=== PATIENT | male | born 1990 | race Caucasian/White ===

== ENCOUNTER 2020-10-08 13:50 | Inpatient (IN) ==
[2020-10-08 15:23] LABS: INR 1.2; PT Patient Result 12.9 SECS (9.8-11.9)
[2020-10-08 15:34] LABS: Albumin 3.3 G/DL (3.4-5.0); Bilirubin,Total 0.6 MG/DL (0.2-1.0); Calcium 8.6 MG/DL (8.5-10.1); Osmolality,Calculated 271.8 MOS/KG (273-304); Total Protein 7.2 G/DL (6.4-8.3)
[2020-10-08 15:40] LABS: Basophils % 0.7 % (0.0-0.8); Eosinophils # 0.1 10*3/uL (0.0-0.87); Eosinophils % 1.8 % (0.00-10.9); Hematocrit 29.7 VOL% (42.0-52.0); Hemoglobin 8.2 GM/DL (14.0-18.0); Immature Granulocytes % 0.2 %; Immature Granulocytes Absolute 0.01 #; Lymphocytes # 1.4 10*3/uL (1.4-4.0); Lymphocytes % 31.6 % (21.2-54.2); Mean Corpuscular HGB Conc 27.6 GM/DL (32-36); Mean Corpuscular Volume 62.5 FL (87-102); Mean Platelet Volume 10.1 FL (9.6-12.0); Neutrophils % 47.7 % (38.7-73.9); Platelet Count 317 T/CUMM (130-400); Red Blood Count 4.75 MC/CUMM (3.8-5.5); Red Cell Distribution Width 17.5 % (9.3-17.3); White Blood Count 4.4 T/CUMM (4-12)
[2020-10-08 15:51] LABS: Eosinophils 2 % (0-10); Lymphocytes 34 % (20-55); Reactive Lymphocytes Few; Segmented Neutrophils 47 % (50-85); Smudge Cells Few; Total Cells Counted 100
[2020-10-08 15:52] LABS: Microcytosis 3+
[2020-10-08 15:53] LABS: Anisocytosis 2+; Target Cells Few
[2020-10-08 15:54] LABS: Ovalocytes Few
[2020-10-08 15:55] LABS: Platelet Estimate Adequate; Polychromasia Few
[2020-10-08] MEDS ORDERED: GLUCAGON 1 MG VIAL IM PRN (17:10)
[2020-10-08] MEDS ORDERED: DEXTROSE 50% 25 GM/50 ML VIAL IV PRN (17:10)
[2020-10-08] MEDS ORDERED: ONDANSETRON 4 MG/2 ML VIAL IV PRN (17:10)
[2020-10-08] MEDS ORDERED: ACETAMINOPHEN 325 MG TABLET PO PRN (17:10)
[2020-10-08] MEDS ORDERED: INFLUENZA VIRUS VACCINE 0.5 ML SYRINGE IM ONE (18:23)
[2020-10-08] MEDS: SODIUM CHLORIDE 0.9% 1,000 ML IV SCH (18:36)
[2020-10-08 19:00] LABS: Hematocrit 31.4 VOL% (42.0-52.0); Hemoglobin 8.5 GM/DL (14.0-18.0)
[2020-10-08] MEDS: PANTOPRAZOLE 40 MG VIAL IV SCH (20:58)
[2020-10-08 22:00] LABS: % Iron Saturation 2.2 % (18-50)
[2020-10-09 01:32] LABS: Hematocrit 28.5 VOL% (42.0-52.0); Hemoglobin 7.8 GM/DL (14.0-18.0)
[2020-10-09] MEDS: SODIUM CHLORIDE 0.9% 1,000 ML IV SCH ×3 (02:33→18:01)
[2020-10-09 06:16] LABS: Basophils % 0.5 % (0.0-0.8); Eosinophils # 0.2 10*3/uL (0.0-0.87); Eosinophils % 3.9 % (0.00-10.9); Hematocrit 28.7 VOL% (42.0-52.0); Immature Granulocytes % 0.2 %; Immature Granulocytes Absolute 0.01 #; Lymphocytes # 1.8 10*3/uL (1.4-4.0); Lymphocytes % 42.2 % (21.2-54.2); Mean Corpuscular HGB Conc 27.2 GM/DL (32-36); Mean Corpuscular Volume 63.2 FL (87-102); Mean Platelet Volume 10.4 FL (9.6-12.0); Monocytes % 19.4 % (1.7-12.7); Neutrophils % 33.8 % (38.7-73.9); Platelet Count 254 T/CUMM (130-400); Red Blood Count 4.54 MC/CUMM (3.8-5.5); Red Cell Distribution Width 17.4 % (9.3-17.3); White Blood Count 4.3 T/CUMM (4-12)
[2020-10-09 06:18] LABS: Hemoglobin 7.8 GM/DL (14.0-18.0)
[2020-10-09 06:29] LABS: Eosinophils 4 % (0-10); Hypochromasia 2+; Lymphocytes 47 % (20-55); Platelet Estimate Adequate; Segmented Neutrophils 33 % (50-85); Total Cells Counted 100
[2020-10-09 06:30] LABS: Microcytosis Slight; Ovalocytes Slight
[2020-10-09 06:32] LABS: Albumin 2.8 G/DL (3.4-5.0); Bilirubin,Total 0.9 MG/DL (0.2-1.0); Calcium 8.9 MG/DL (8.5-10.1); Osmolality,Calculated 280.1 MOS/KG (273-304); Thyroid Stimulating Hormone 0.99 uIU/ml (0.358-3.74); Total Protein 6.6 G/DL (6.4-8.3)
[2020-10-09] MEDS: BISACODYL 5 MG TABLET PO SCH ×3 (08:57→23:17)
[2020-10-09] MEDS: PANTOPRAZOLE 40 MG VIAL IV SCH ×2 (08:57→20:30)
[2020-10-09 09:31] LABS: Hematocrit 31.2 VOL% (42.0-52.0)
[2020-10-09 09:33] LABS: Hemoglobin 8.4 GM/DL (14.0-18.0)
[2020-10-09] MEDS ORDERED: POLYETHYLENE GLYCOL POWDER 255 GM BOTTLE PO ONE (18:00)
[2020-10-09] MEDS ORDERED: MAGNESIUM CITRATE 300 ML BOTTLE PO ONE (21:00)
[2020-10-10] MEDS: SODIUM CHLORIDE 0.9% 1,000 ML IV SCH ×2 (01:53→10:42)
[2020-10-10 06:50] LABS: Bilirubin,Total 0.9 MG/DL (0.2-1.0); Calcium 8.9 MG/DL (8.5-10.1); Osmolality,Calculated 277.3 MOS/KG (273-304); Total Protein 7.3 G/DL (6.4-8.3)
[2020-10-10 07:22] LABS: Basophils % 0.6 % (0.0-0.8); Eosinophils # 0.2 10*3/uL (0.0-0.87); Eosinophils % 2.7 % (0.00-10.9); Hematocrit 32.7 VOL% (42.0-52.0); Hemoglobin 8.9 GM/DL (14.0-18.0); Immature Granulocytes % 0.6 %; Immature Granulocytes Absolute 0.04 #; Lymphocytes # 2.2 10*3/uL (1.4-4.0); Lymphocytes % 33.7 % (21.2-54.2); Mean Corpuscular HGB Conc 27.2 GM/DL (32-36); Mean Platelet Volume 10.1 FL (9.6-12.0); Monocytes % 9.9 % (1.7-12.7); Neutrophils % 52.5 % (38.7-73.9); Platelet Count 358 T/CUMM (130-400); Red Blood Count 5.19 MC/CUMM (3.8-5.5); Red Cell Distribution Width 17.5 % (9.3-17.3); White Blood Count 6.7 T/CUMM (4-12)
[2020-10-10 07:27] LABS: Anisocytosis 2+; Ovalocytes Few; Platelet Estimate Normal; Poikilocytosis 1+
[2020-10-10 07:28] LABS: Hypochromasia Slight; Tear Drop Cells Few
[2020-10-10] MEDS ORDERED: propofoL 200 MG/20 ML VIAL IV ONE ×2 (07:50→08:16)
[2020-10-10] MEDS ORDERED: LIDOCAINE 2% 5 ML VIAL ONE (07:50)
[2020-10-10] MEDS ORDERED: predniSONE 20 MG TABLET PO SCH (09:00)
[2020-10-10] MEDS ORDERED: MESALAMINE 800 MG TABLET PO SCH (09:00)
[2020-10-10] MEDS: PANTOPRAZOLE 40 MG VIAL IV SCH (10:06)
[2020-10-10 11:09] VITALS: BP 124/75
[2020-10-10] MEDS ORDERED: HYDROCORTISONE ENEMA 100 MG/60 ML BOTTLE RECTAL SCH (21:00)
== END 2020-10-10 11:03 | disposition home or self-care (01) | DRG 387 ==
LOC: N.ED 13:50 → N.EDINP 13:50 → N.4E 18:20
PROVIDERS: ADMIT Internal Medicine; ATTEND Internal Medicine
PROC: COLONBX (2020-10-10 07:05)